=== PATIENT | male | born 1980 | race Caucasian/White ===

== ENCOUNTER 2022-08-11 15:09 | Emergency (ER) | payer MEDICARE ==
[~2022-08-11] VITALS: Ht 185.4 cm; Wt 122.5 kg
[2022-08-11] MEDS ORDERED: ACETAMINOPHEN 325 MG TAB PO STA (17:32)
[2022-08-11] MEDS ORDERED: CLINDAMYCIN HC300 MG PO (17:35)
[2022-08-11] MEDS ORDERED: PENICILLIN V P500 MG PO (17:40)
[2022-08-11] MEDS ORDERED: ACETAMINOPHEN 325 MG TAB ONE (17:48)
== END 2022-08-11 17:52 | disposition home or self-care (01) ==
LOC: FSED 15:38 → EDBD 15:38 → FSED 17:52
DX: K04.7 Periapical abscess without sinus (principal); F84.0 Autistic disorder
CPT/HCPCS: 70486; 99283

== ENCOUNTER 2024-08-23 16:03 | Emergency (ER) | payer MEDICARE ==
[~2024-08-23] VITALS: Ht 185.4 cm; Wt 122.5 kg
[~2024-08-23 16:03] MED LIST: CLINDAMYCIN HC300 MG PO; PENICILLIN V P500 MG PO
[2024-08-23 17:40] VITALS: PULSE 118; RESP 20; TEMP 98.6
[2024-08-23] MEDS: ONDANSETRON HCL INJ 2MG/ML 2ML 2 MG/ML VIAL IV ONE (18:32)
[2024-08-23] MEDS: LACTATED RINGER'S 1,000 ML IV ONE (18:33)
[2024-08-23] MEDS ORDERED: CEFDINIR300 MG PO (18:48)
[2024-08-23] MEDS ORDERED: DIPHENHYDRAMINE25 M2 PO (18:48)
[2024-08-23] MEDS ORDERED: ONDANSETRON ODT4 MG PO (18:48)
[2024-08-23 19:08] VITALS: BP 143/85; PULSE 108; RESP 16; TEMP 98.4; O2SAT 95
== END 2024-08-23 19:09 | disposition home or self-care (01) ==
LOC: FSED 16:12
DX: R05.9 Cough, unspecified (principal); J06.9 Acute upper respiratory infection, unspecified; R11.2 Nausea with vomiting, unspecified; E86.0 Dehydration; F84.0 Autistic disorder; G47.30 Sleep apnea, unspecified; E66.9 Obesity, unspecified; Z86.73 Personal history of transient ischemic attack (TIA), and cerebral infarction without residual deficits
CPT/HCPCS: 71046; 99283; J0696; J2405; J7121